=== PATIENT | male | born 1970 | race Caucasian/White ===

== ENCOUNTER 2018-09-16 08:15 | Emergency (ER) | payer OTHER, MEDICAID ==
[~2018-09-16] VITALS: Ht 182.9 cm; Wt 81.6 kg
[2018-09-16] MEDS ORDERED: NACL 0.9% 1,000 ML IV ONE (08:20)
[2018-09-16 08:26] VITALS: BP_SYST 123
[2018-09-16 09:03] LABS: HEMATOCRIT 44.5 % (36-54); MEAN CORPUSCULAR HEMOGLOBIN 31 pg (27-31); MEAN CORPUSCULAR HGB CONC 34 % (32-36); MEAN CORPUSCULAR VOLUME 91 fL (79.0-98.0); RED CELL DISTRIBUTION WIDTH 14.1 % (9.0-15.0); WHITE BLOOD COUNT (AUTO) 10.5 K/uL (4.8-10.8)
[2018-09-16 09:04] LABS: BASOPHILS # (AUTO) 0.1 K/uL (0.0-0.2); EOSINOPHILS # (AUTO) 0.4 K/uL (0.0-0.4); LYMPHOCYTES # (AUTO) 0.6 K/uL (1.0-5.5); LYMPHOCYTES % (AUTO) 15.6 % (20.5-51.5); MONOCYTES # (AUTO) 0.9 K/uL (0.0-1.0); MONOCYTES % (AUTO) 8.5 % (1.7-9.3); NEUTROPHILS # (AUTO) 7.5 K/uL (1.8-7.7); NEUTROPHILS % (AUTO) 70.9 % (40.0-70.0); PLATELET COUNT (AUTO) 223 K/uL (130-430)
[2018-09-16 09:07] LABS: ANION GAP 9 (5-15); CALCIUM 8.7 mg/dL (8.4-11.0); CHLORIDE 105 mmol/L (98-107); CREATININE 0.88 mg/dL (0.55-1.30); GLUCOSE 83 mg/dL (70-99); POTASSIUM 3.9 mmol/L (3.5-5.1); SODIUM SERUM 140 mmol/L (136-145); UREA NITROGEN, BLOOD 9 mg/dL (8-21)
[2018-09-16 09:10] LABS: GFR AFRICAN AMERICAN 119 mL/min (>90)
[2018-09-16 09:16] LABS: BILIRUBIN,URINE NEGATIVE (NEGATIVE); BLOOD, URINE NEGATIVE (NEGATIVE); CLARITY/URINE CLEAR (CLEAR); COLOR,URINE YELLOW (YELLOW); GLUCOSE,URINE NEGATIVE (NEGATIVE); KETONES,URINE TRACE (NEGATIVE); LEUKOCYTE ESTERASE ,URINE NEGATIVE (NEGATIVE); NITRITE, URINE NEGATIVE (NEGATIVE); PROTEIN URINE TRACE (NEGATIVE)
[2018-09-16 09:18] LABS: PROTHROMBIN TIME 9.8 SECS (9.5-12.5)
[2018-09-16 09:29] LABS: TOTAL BILIRUBIN 0.2 mg/dL (0.0-1.0)
[2018-09-16 09:30] LABS: ALANINE AMINOTRANSFERASE 15 U/L (12-78); ALBUMIN 3.6 g/dL (3.4-4.8); ASPARTATE AMINOTRANSFERASE 16 U/L (10-37)
[2018-09-16 09:31] LABS: ACETAMINOPHEN < 1 ug/mL (1-30); ALCOHOL, BLOOD < 3 mg/dL (<10); AMYLASE 62 U/L (0-100); LIPASE 175 U/L (73-393)
[2018-09-16 09:35] LABS: BARBITURATE, URINE NEGATIVE (NEG <=200); BENZODIAZEPINE, URINE NEGATIVE (NEG <=150); CANNABINOID, URINE POSITIVE (NEG <=50); COCAINE, URINE NEGATIVE (NEG <=150); METHAMPHETAMINES SCREEN,URINE NEGATIVE (NEG <=500); OPIATE, URINE NEGATIVE (NEG <=100); PHENCYCLIDINE SCREEN,URINE NEGATIVE (NEG <=25); UR TRICYCLIC ANTIDEPRESSANTS POSITIVE (NEG <=300); URINE AMPHETAMINE NEGATIVE (NEG <=500); URINE METHADONE NEGATIVE (NEG <=200); URINE OXYCODONE SCREEN NEGATIVE (NEG <=100); URINE PROPOXYPHENE SCREEN NEGATIVE (NEG <=300)
[2018-09-16 09:52] LABS: BACTERIA,URINE FEW /HPF (None Seen); MUCUS,URINE None Seen /LPF (None Seen); RBC,URINE 0-3 /HPF (0-3); WBC,URINE 0-3 /HPF (0-3); YEAST,URINE None Seen /HPF (None Seen)
[2018-09-16 10:46] VITALS: BP_SYST 132
== END 2018-09-16 10:46 | disposition home or self-care (01) ==
LOC: SED 08:15
DX: R04.2 Hemoptysis (principal); J44.1 Chronic obstructive pulmonary disease with (acute) exacerbation; Z86.69 Personal history of other diseases of the nervous system and sense organs
CPT/HCPCS: 36415; 71045; 80053; 80164; 80307; 81000; 82150; 83690; 84484; 85025; 85610; 85730; 93005; 99284; G0480; G0481; G0482; J7030

== ENCOUNTER 2022-01-30 16:09 | Emergency (ER) | payer OTHER, MEDICAID ==
--- NOTE | 2022-01-30 16:11 | NUR ---
Placed in room 03 . Placed on monitoring manager, blood pressure machine and pulse oximeter. To gown for exam. Side rails up.
[2022-01-30] MEDS ORDERED: ALBUTEROL SULFATE 0.083% 2.5 MG/3 ML VIAL.NEB INH ONE ×2 (16:21→16:45)
[2022-01-30 16:24] VITALS: BP_SYST 98
--- NOTE | 2022-01-30 16:31 | NUR ---
Pt present to ED via EMS with report of dyspnea and chest tightness. EMS gave aspirin 325 and one nitroglycerin oral spray in route. Pt reports pain and tightness unchanged. hx of COPD. Pt placed in bed. 20G IV in place. Pt seen by ED physicin. Will continue to monitor pt.
[2022-01-30] MEDS ORDERED: METHYLPREDNISOLONE SOD SUCC 40 MG/ML VIAL IVP ONE (16:45)
[2022-01-30] MEDS ORDERED: NACL 0.9% 1,000 ML IV ONE (16:45)
[2022-01-30 16:58] LABS: BASOPHILS # (AUTO) 0.1 K/uL (0.0-0.2); BASOPHILS % (AUTO) 1.4 % (0.0-2.0); EOSINOPHILS # (AUTO) 0.2 K/uL (0.0-0.4); EOSINOPHILS % (AUTO) 2.8 % (0.0-4.0); HEMATOCRIT 38.4 % (36-54); HEMOGLOBIN 13.4 g/dL (14.0-18.0); LYMPHOCYTES # (AUTO) 1.7 K/uL (1.0-5.5); LYMPHOCYTES % (AUTO) 24.1 % (20.5-51.5); MEAN CORPUSCULAR HEMOGLOBIN 31 pg (27-31); MEAN CORPUSCULAR HGB CONC 35 % (32-36); MEAN CORPUSCULAR VOLUME 89 fL (79.0-98.0); MONOCYTES # (AUTO) 0.4 K/uL (0.0-1.0); MONOCYTES % (AUTO) 5.6 % (1.7-9.3); NEUTROPHILS # (AUTO) 4.7 K/uL (1.8-7.7); NEUTROPHILS % (AUTO) 66.1 % (40.0-70.0); PLATELET COUNT (AUTO) 182 K/uL (130-430); RED BLOOD CELL COUNT(AUTO) 4.31 MIL/uL (4.2-6.2); RED CELL DISTRIBUTION WIDTH 13.8 % (9.0-15.0); WHITE BLOOD COUNT (AUTO) 7.2 K/uL (4.8-10.8)
[2022-01-30 17:02] LABS: ANION GAP 11 (5-15); CALCIUM 8.5 mg/dL (8.4-11.0); CHLORIDE 106 mmol/L (98-107); CREATININE 0.99 mg/dL (0.55-1.30); GLUCOSE 103 mg/dL (70-99); POTASSIUM 3.2 mmol/L (3.5-5.1); SODIUM SERUM 145 mmol/L (136-145); UREA NITROGEN, BLOOD 17 mg/dL (8-21)
[2022-01-30 17:03] LABS: GFR AFRICAN AMERICAN 102 mL/min (>90)
[2022-01-30 17:06] LABS: PROTHROMBIN TIME 10.5 SECS (9.5-12.5)
[2022-01-30 17:10] LABS: ALANINE AMINOTRANSFERASE 21 U/L (12-78); ALBUMIN 3.4 g/dL (3.4-4.8); ASPARTATE AMINOTRANSFERASE 23 U/L (10-37); TOTAL BILIRUBIN 0.5 mg/dL (0.0-1.0)
[2022-01-30 18:11] VITALS: BP_SYST 113
--- NOTE | 2022-01-30 18:58 | NUR ---
Pt eloped out of ED after D/C IV access. Pt states that nothing is being done for him and he would like to leave. ED physician made aware of pt decision. Pt signed AMA form. ED physician refused to sign AMA form stating that he never had a chance to speak to pt before departure.
== END 2022-01-30 18:58 | disposition left against medical advice (07) ==
LOC: SED 16:09
DX: R07.9 Chest pain, unspecified (principal); R05.9 Cough, unspecified; R06.02 Shortness of breath; Z79.899 Other long term (current) drug therapy; Z20.822 Contact with and (suspected) exposure to COVID-19
CPT/HCPCS: 80053; 83880; 85025; 85610; 85730; 84484; 36415; 93005; 71045; 94640; 99285; 96374; 87426; J1030; J7613